=== PATIENT | female | born 1970 | race Caucasian/White ===

== ENCOUNTER 2024-09-29 19:08 | Emergency (ER) | payer MEDICAID ==
[~2024-09-29] VITALS: Ht 167.6 cm; Wt 82.0 kg
[2024-09-29 19:16] VITALS: BP 170/90; PULSE 78; RESP 16; TEMP 36.6; O2SAT 98
[2024-09-29 20:04] LABS: BASOPHILS % 0.3 % (0.0-2.0); EOSINOPHILS % 0.9 % (0.0-5.0); HEMATOCRIT. 41.3 % (36.0-48.0); HEMOGLOBIN. 13.9 g/dL (12.0-16.0); LYMPHOCYTES % 15.1 % (20.0-50.0); MEAN CORPUSCULAR HEMOGLOBIN 28.7 pg (28.0-32.0); MEAN CORPUSCULAR HGB CONC 33.6 g/dL (31.0-37.0); MEAN CORPUSCULAR VOLUME 85.5 fL (81.0-99.0); MEAN PLATELET VOLUME 8.6 fl (7.4-10.4); MONOCYTES % 3.2 % (2.0-8.0); NEUTROPHILS % 80.5 % (40.0-76.0); PLATELET 188 x1000/uL (130-400); RED BLOOD CELL COUNT 4.83 mill/uL (4.2-5.4); RED CELL DISTRIBUTION WIDTH 13.5 % (11.6-14.6); WHITE BLOOD COUNT 10.8 x1000/uL (4.5-11.0)
[2024-09-29 20:10] LABS: CHLORIDE 104 mEq/L (98-107); POTASSIUM 3.7 mEq/L (3.5-5.1); SODIUM 138 mEq/L (136-145)
[2024-09-29 20:11] LABS: CARBON DIOXIDE 23 mEq/L (21-32)
[2024-09-29 20:12] LABS: CALCIUM 9.6 mg/dL (8.7-10.4)
[2024-09-29 20:16] LABS: CREATININE 0.6 mg/dL (0.6-1.0); GLUCOSE 120 mg/dL (70-105); UREA NITROGEN BLOOD 10 mg/dL (9-23)
[2024-09-29 20:25] LABS: TROPONIN I HIGH SENSITIVITY < 4 ng/L (3.0-34)
[2024-09-29] MEDS: IBUPROFEN 600MG TABLET PO ONE (21:21)
[2024-09-29 21:33] LABS: TROPONIN I HIGH SENSITIVITY < 4 ng/L (3.0-34)
== END 2024-09-29 22:03 | disposition home or self-care (01) ==
LOC: ER 19:08
DX: F43.0 Acute stress reaction (principal); R07.89 Other chest pain
CPT/HCPCS: 80048; 83880; 85025; 84484; 36415; 71045; 93005; 99285; Z7610